=== PATIENT | female | born 1955 | race African-American/Black ===

== ENCOUNTER → 2020-02-13 | Outpatient (CLI) | payer MEDICAID ==
[2019-05-16 16:00] VITALS: BP 106/72
[~2020-02-13] MED LIST: CARV3.12 PO; CITA40TA12 PO; CLON0.5T PO; FERR325T14 PO; HYDR-3135 PO; LATA2.5D3 OP; MIRT15TA PO; OXYC1TAB15 PO; TIMO10DR5 OU; TIZA4TAB2 PO; VITA100075 PO
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
== END ==
LOC: KCIC MRI 13:02
PROVIDERS: ATTEND Orthopaedic Surgery
DX: M51.37 Other intervertebral disc degeneration, lumbosacral region (principal); M51.46 Schmorl's nodes, lumbar region; M25.78 Osteophyte, vertebrae; G95.29 Other cord compression
CPT/HCPCS: 72148

== ENCOUNTER 2020-08-21 01:53 | Emergency (ER) | payer MEDICAID ==
[~2020-08-21] VITALS: Ht 167.6 cm; Wt 48.6 kg
[~2020-08-21 01:53] MED LIST changes: +AMLO-186 PO; +MIRT-36 PO; -MIRT15TA PO
--- NOTE | 2020-08-21 02:16 | PHYS DOC ---
Past Medical History Past Medical History: Anxiety, Depression, Hypertension, Other Additional Past Medical Histor: CATARACT LEFT EYE, glaucoma Past Surgical History: , Tubal ligation, Other Additional Past Surgical Histo: LEFT KNEE Smoking Status: Current Every Day Smoker Alcohol Use: Rarely Drug Use: Marijuana Adult General Chief Complaint Chief Complaint: SYNCOPE HPI HPI Patient is a 64 year old F with a known past medical history of hypertension now presents emergency department after apparent syncopal episode. Patient states that she was getting up to the bathroom when she started to feel slightly lightheaded and dizzy. Patient states she took her blood pressure and noted it was elevated and this caused her to syncopized. Patient states that she fell around but cannot remember if she hit her head. Since that time is been co mplaining of a throbbing right-sided headache with positive photophobia and photophobia without any radiation. Denies any vision changes, numbness or weakness. Has any recent fevers or chills Review of Systems Review of Systems Constitutional: Denies fever or chills [] Eyes: Denies change in visual acuity, redness, or eye pain [] HENT: Denies nasal congestion or sore throat [] Respiratory: Denies cough or shortness of breath [] Cardiovascular: No additional information not addressed in HPI [] GI: Denies abdominal pain, nausea, vomiting, bloody stools or diarrhea [] : Denies dysuria or hematuria [] Musculoskeletal: Denies back pain or joint pain [] Integument: Denies rash or skin lesions [] Neurologic: Denies headache, focal weakness or sensory changes [] Endocrine: Denies polyuria or polydipsia [] All other systems were reviewed and found to be within normal limits, except as documented in this note. Current Medications Current Medications Current Medications Medications (Trade) Dose Ordered Sig/Parvez Start Time Stop Time Status Last Admin Dose Admin Acetaminophen (Tylenol) 650 mg 1X ONCE 08/21/20 02:15 08/21/20 02:16 DC 08/21/20 02:41 650 MG Diphenhydramine HCl (Benadryl) 50 mg 1X ONCE 08/21/20 03:15 08/21/20 03:16 DC 08/21/20 03:27 50 MG Labetalol HCl (Normodyne Iv Push) 10 mg 1X ONCE 08/21/20 02:15 08/21/20 02:16 DC 12/30/20 02:43 10 MG Metoclopramide HCl (Reglan Vial) 10 mg 1X ONCE 08/21/20 03:15 08/21/20 03:16 DC 08/21/20 03:28 10 MG Allergies Allergies Allergies Coded Allergies Type Severity Reaction Last Updated Verified ibuprofen Allergy Intermediate HIVES 05/14/19 Yes Penicillins Adverse Reaction Intermediate PATIENT STATES THAT SHE PASSES OUT 05/14/19 Yes aspirin Adverse Reaction Intermediate PATIENT STATES SHE PASSES OUT 05/14/19 Yes tramadol Adverse Reaction Mild MAKES PATIENT FALL 05/14/19 Yes Physical Exam Physical Exam Constitutional: Well developed, well nourished, no acute distress, non-toxic appearance. [] HENT: Normocephalic, atraumatic, bilateral external ears normal, oropharynx moist, no oral exudates, nose normal. [] Eyes: PERRLA, EOMI, conjunctiva normal, no discharge. [] Neck: Normal range of motion, no tenderness, supple, no stridor. [] Cardiovascular:Heart rate regular rhythm, no murmur [] Lungs & Thorax: Bilateral breath sounds clear to auscultation [] Abdomen: Bowel sounds normal, soft, no tenderness, no masses, no pulsatile masses. [] Skin: Warm, dry, no erythema, no rash. [] Back: No tenderness, no CVA tenderness. [] Extremities: No tenderness, no cyanosis, no clubbing, ROM intact, no edema. [] Neurologic: Alert and oriented X 3, normal motor function, normal sensory function, no focal deficits noted. [] Psychologic: Affect normal, judgement normal, mood normal. [] Current Patient Data Vital Signs Vital Signs Date Time Temp Pulse Resp B/P (MAP) Pulse Ox O2 Delivery O2 Flow Rate FiO2 08/21/20 02:43 93 191/125 08/21/20 01:53 98.0 18 98 Room Air 98.0 Lab Values Laboratory Tests Test 08/21/20 02:15 White Blood Count 4.1 x10^3/uL (4.0-11.0) Red Blood Count 3.78 x10^6/uL (3.50-5.40) Hemoglobin 12.2 g/dL (12.0-15.5) Hematocrit 36.9 % (36.0-47.0) Mean Corpuscular Volume 98 fL (79-100) Mean Corpuscular Hemoglobin 32 pg (25-35) Mean Corpuscular Hemoglobin Concent 33 g/dL (31-37) Red Cell Distribution Width 13.7 % (11.5-14.5) Platelet Count 174 x10^3/uL (140-400) Neutrophils (%) (Auto) 41 % (31-73) Lymphocytes (%) (Auto) 48 % (24-48) Monocytes (%) (Auto) 9 % (0-9) Eosinophils (%) (Auto) 1 % (0-3) Basophils (%) (Auto) 1 % (0-3) Neutrophils # (Auto) 1.7 x10^3/uL (1.8-7.7) L Lymphocytes # (Auto) 2.0 x10^3/uL (1.0-4.8) Monocytes # (Auto) 0.4 x10^3/uL (0.0-1.1) Eosinophils # (Auto) 0.0 x10^3/uL (0.0-0.7) Basophils # (Auto) 0.0 x10^3/uL (0.0-0.2) Sodium Level 140 mmol/L (136-145) Potassium Level 3.8 mmol/L (3.5-5.1) Chloride Level 104 mmol/L (98-107) Carbon Dioxide Level 28 mmol/L (21-32) Anion Gap 8 (6-14) Blood Urea Nitrogen 10 mg/dL (7-20) Creatinine 0.8 mg/dL (0.6-1.0) Estimated GFR (Cockcroft-Gault) 87.9 BUN/Creatinine Ratio 13 (6-20) Glucose Level 102 mg/dL (70-99) H Calcium Level 10.1 mg/dL (8.5-10.1) Magnesium Level 2.1 mg/dL (1.8-2.4) Total Bilirubin 0.6 mg/dL (0.2-1.0) Aspartate Amino Transferase (AST) 18 U/L (15-37) Alanine Aminotransferase (ALT) 18 U/L (14-59) Alkaline Phosphatase 47 U/L (46-116) Troponin I Quantitative < 0.017 ng/mL (0.000-0.055) Total Protein 7.5 g/dL (6.4-8.2) Albumin 4.0 g/dL (3.4-5.0) Albumin/Globulin Ratio 1.1 (1.0-1.7) Laboratory Tests 08/21/20 02:15 Laboratory Tests 08/21/20 02:15 EKG EKG NSR, prolonged P wave, no ST changes, intervals normal, some evidence of old lateral myocardial injury Radiology/Procedures Radiology/Procedures PQRS Compliance Statement: One or more of the following individualized dose reduction techniques were utilized for this examination: 1. Automated exposure control 2. Adjustment of the mA and/or kV according to patient size 3. Use of iterative reconstruction technique CT head without contrast 08/21/2020 2:35 AM INDICATION: Headache COMPARISON: 06/18/2020 CT head TECHNIQUE: Multiple axial CT images of the head were obtained from skull base through the vertex without intravenous contrast. FINDINGS: Head: Ventricles, sulci and basal cisterns are within normal limits. Low-attenuation in the periventricular white matter is suggestive of chronic small vessel ischemic changes. There is no hydrocephalus. Peterson-white matter differentiation is normal. There is no acute intracranial hemorrhage. There is no mass, mass effect or midline shift. Posterior fossa is normal in appearance. Visualized portions of the orbits are normal. Paranasal sinuses are well aerated. Mastoid air cells are well aerated. Scalp and calvaria are normal. IMPRESSION: No acute intracranial hemorrhage. Low-attenuation in the periventricular white matter is suggestive of chronic small vessel ischemic changes. Electronically signed by: Danni Mccall MD (08/21/2020 2:42 AM) [facility] Course & Med Decision Making Course & Med Decision Making Pertinent Labs and Imaging studies reviewed. (See chart for details) 64F presents emergency department new onset headache and reported syncopal event. Patient be hypertensive. At this time obtain labs and work-up to make sure there is no evidence of hypertensive emergency. Will obtain a CT scan of the head to ensure that there is no intracranial hemorrhage or abnormality. 0400 -labs reviewed and unremarkable. X-ray and CT scan without any significant abnormality. Patient was given a dose of labetalol with improvement of her symptoms and her hypertension. In addition patient was still complaining of ongoing headache so patient was given a migraine cocktail and now states that her symptoms are resolved. At this time will plan for discharge home with PCP follow-up I spoken with the patient and her caregivers. I explained the patient's condition, diagnoses and treatment plan based on the information available to me at this time. I have answered the patient and her caregiver's questions and addressed any concerns. The patient and her caregivers have a good u nderstanding of patient's diagnosis, condition and treatment plan as can be expected at this point. Vital signs have been stable. Patient's condition is stable and appropriate for discharge from the emergency department. Patient will pursue further outpatient evaluation with primary care physician or other designated or consulting physician as outlined in the discharge instructions. The patient and/or caregivers are agreeable to this plan of care and follow-up instructions have been explained in detail. The patient and/or caregivers have received these instructions in written form and have expressed an understanding of the discharge instructions. The patient and/or caregivers are aware that any significant change of condition or worsening of symptoms should prompt immediate return to this or the closest emergency department or call to 911. Jyoti Disclaimer Dragon Disclaimer This electronic medical record was generated, in whole or in part, using a voice recognition dictation system. Departure Departure Impression: Primary Impression: Headache Additional Impression: Hypertension Disposition: 01 DC HOME SELF CARE/HOMELESS Condition: GOOD Referrals: PARIS WITT MD (PCP) Patient Instructions: Hypertension Additional Instructions: EMERGENCY DEPARTMENT GENERAL DISCHARGE INSTRUCTIONS Thank you for coming to [facility] Emergency Department (ED) today and trusting us with you care. We trust that you had a positive experience in our Emergency Department. If you wish to speak to the department management, you may call the Director at [phone]. YOUR FOLLOW UP INSTRUCTIONS ARE FOLLOWS: 1. Do you have a private Doctor? If you do not have a private doctor, please ask for a resource list of physicians or clinics that may be able to assist you with follow up care. 2. The Emergency Physicain has interpreted your x-rays. The X-Ray specialist will also review them. If there is a change in the findings, you will be notified in 48 hours when at all possible. 3. A lab test or culture has been done, your results will be reviewed and you will be notified if you need a change in treatment. ADDITIONAL INSTRUCTIONS AND INFORMATION: 1. Your care today has been supervised by a physician who is specially trained in emergency care. Many problems require more than one evaluation for a complete diagnosis and treatment. We recommend that you schedule your follow up appointment as jason mmended to ensure complete treatment of you illness or injury. If you are unable to obtain follow up care and continue to have a problem, or if your condition worsens, we recommend that you return to the ED. 2. We are not able to safely determine your condition over the phone nor are we able to give sound medical advice over the phone. For these safety reasons, if you call for medical advice we will ask you to come to the ED for further evaluation. 3. If you have any questions regarding these discharge instructions please call the ED at [phone]. SAFETY INFORMATION: In the interest of safety, wellness, and injury prevention; we encourage you to wear your sealbelt, if you smoke; quite smoking, and we encourage family to use a protective helmet for bicycling and other sporting events that present an increased risk for head injury. IF YOUR SYMPTOMS WORSEN OR NEW SYMPTOMS DEVELOP, OR YOU HAVE CONCERNS ABOUT YOUR CONDITION; OR IF YOUR CONDITION WORSENS WHILE YOU ARE WAITING FOR YOUR FOLLOW UP APPOINTMENT; EITHER CONTACT YOUR PRIMARY CARE DOCTOR, THE PHYSICIAN WHOSE NAME AND NUMBER YOU WERE GIVEN, OR RETURN TO THE ED IMMEDIATELY. Problem Qualifiers CHRIS MONTOYA MD Aug 21, 2020 02:16
[2020-08-21 02:24] LABS: BASO % 1 % (0-3); EOS % 1 % (0-3); HEMATOCRIT 36.9 % (36.0-47.0); HEMOGLOBIN 12.2 g/dL (12.0-15.5); LYMPH % 48 % (24-48); MEAN CORPUSCULAR HEMOGLOBIN 32 pg (25-35); MEAN CORPUSCULAR HGB CONC 33 g/dL (31-37); MEAN CORPUSCULAR VOLUME 98 fL (79-100); MONO # 0.4 x10^3/uL (0.0-1.1); MONO % 9 % (0-9); NEUT # 1.7 x10^3/uL (1.8-7.7); NEUT % 41 % (31-73); PLATELET COUNT 174 x10^3/uL (140-400); RED BLOOD COUNT 3.78 x10^6/uL (3.50-5.40); RED CELL DISTRIBUTION WIDTH 13.7 % (11.5-14.5); WHITE BLOOD COUNT 4.1 x10^3/uL (4.0-11.0)
[2020-08-21 02:36] LABS: CALCIUM 10.1 mg/dL (8.5-10.1); CREATININE 0.8 mg/dL (0.6-1.0); GFR 87.9; POTASSIUM 3.8 mmol/L (3.5-5.1)
[2020-08-21] MEDS: ACETAMINOPHEN 325 MG TABLET. PO ONE (02:41)
[2020-08-21 02:42] LABS: ALBUMIN/GLOBULIN RATIO 1.1 (1.0-1.7); MAGNESIUM 2.1 mg/dL (1.8-2.4); TOTAL BILIRUBIN 0.6 mg/dL (0.2-1.0); TOTAL PROTEIN 7.5 g/dL (6.4-8.2)
[2020-08-21] MEDS: LABETALOL 20 MG/4 ML DISP.SYRIN. IVP ONE (02:43)
--- NOTE | 2020-08-21 02:45 | RAD ---
XR CHEST 1V 08/21/2020 2:36 AM INDICATION: Chest pain COMPARISON: 06/18/2020 TECHNIQUE: Portable frontal view of the chest is provided. FINDINGS: The cardiomediastinal silhouette is within normal limits. Lungs are clear. There are no significant pleural effusions. There is no pulmonary vascular congestion. No pneumothora x. No suspicious osseous abnormality. IMPRESSION: There is no acute cardiopulmonary process. Electronically signed by: Danni Mccall MD (08/21/2020 2:43 AM) [facility]
--- NOTE | 2020-08-21 02:45 | RAD ---
PQRS Compliance Statement: One or more of the following individualized dose reduction techniques were utilized for this examinat ion: 1. Automated exposure control 2. Adjustment of the mA and/or kV according to patient size 3. Use of iterative reconstruction technique CT head without contrast 08/21/2020 2:35 AM INDICATION: Headache COMPARISON: 06/18/2020 CT head TECHNIQUE: Multiple axial CT images of the head were obtained from skull base through the vertex with out intravenous contrast. FINDINGS: Head: Ventricles, sulci and basal cisterns are within normal limits. Low-attenuation in the periventricular white matter is suggestive of chronic small vessel ischemic ch anges. There is no hydrocephalus. Peterson-white matter differentiation is normal. There is no acute intr acranial hemorrhage. There is no mass, mass effect or midline shift. Posterior fossa is normal in justin earance. Visualized portions of the orbits are normal. Paranasal sinuses are well aerated. Mastoid air cells a re well aerated. Scalp and calvaria are normal. IMPRESSION: No acute intracranial hemorrhage. Low-attenuation in the periventricular white matter is suggestive of chronic small vessel ischemic ch anges. Electronically signed by: Danni Mccall MD (08/21/2020 2:42 AM) [facility]
--- NOTE | 2020-08-21 02:47 | RAD ---
XR KNEE _3 VIEWS_LT 08/21/2020 2:36 AM INDICATION: Chest pain COMPARISON: None available. TECHNIQUE: 3 views of the left knee are provided. FINDINGS/ IMPRESSION: Limited evaluation for knee joint effusion due to the oblique positioning. Left total knee arthroplasty is identified. No lucency surrounding the hardware. No evidence for hard sims failure. No acute fracture or dislocation. Electronically signed by: Danni Mccall MD (08/21/2020 2:45 AM) [facility]
[2020-08-21] MEDS: diphenhydrAMINE 50 MG/ML VIAL IVP ONE (03:27)
[2020-08-21] MEDS: METOCLOPRAMIDE HCL 10 MG/2 ML VIAL. IVP ONE (03:28)
[2020-08-21 04:05] VITALS: BP 136/86
[2020-08-21] MEDS ORDERED: IBUP200T44 PO (04:38)
--- NOTE | 2020-08-21 05:27 | EKG ---
[facility] [address] [place] [address] Test Date: 2020-08-21 Test Time: 02:03:53 Pat Name: CYNTHIA OBREGON Department: Room: Gender: F [employer]: : [id number] Requested By: CHRIS MONTOYA Order Number: [id number] Reading MD: Measurements Intervals [place] Rate: 91 P: 79 ME: 146 QRS: 68 QRSD: 74 T: 61 QT: 360 QTc: 444 Interpretive Statements SINUS RHYTHM LEFT ATRIAL ABNORMALITY QRS(T) CONTOUR ABNORMALITY CONSIDER ANTEROSEPTAL MYOCARDIAL DAMAGE ABNORMAL ECG RI6.01 No previous ECG available for comparison
== END 2020-08-21 05:00 | disposition home or self-care (01) ==
LOC: ER 01:53
DX: R51.9 Headache, unspecified (principal); I10 Essential (primary) hypertension; M25.562 Pain in left knee; G89.11 Acute pain due to trauma; R55 Syncope and collapse; H53.149 Visual discomfort, unspecified; F41.9 Anxiety disorder, unspecified; F32.9 Major depressive disorder, single episode, unspecified; F17.200 Nicotine dependence, unspecified, uncomplicated; Z88.0 Allergy status to penicillin; Z88.6 Allergy status to analgesic agent; Z88.8 Allergy status to other drugs, medicaments and biological substances; W18.39XA Other fall on same level, initial encounter; Y93.89 Activity, other specified; Y92.89 Other specified places as the place of occurrence of the external cause; Y99.8 Other external cause status
CPT/HCPCS: 36415; 70450; 71045; 73562; 80053; 83735; 84484; 85025; 93005; 96374; 96375; 99285; J1200; J2765; J3490